=== PATIENT | male | born 1985 | race African-American/Black ===

== ENCOUNTER 2018-07-31 13:02 | Emergency (ER) | payer SELFPAY ==
[~2018-07-31] VITALS: Ht 182.9 cm; Wt 116.0 kg
[2018-07-31 18:48] LABS: BASOPHILS % 0.5 % (0.0-2.0); HEMATOCRIT. 46.2 % (42.0-52.0); HEMOGLOBIN. 15.4 g/dL (14.0-18.0); MEAN CORPUSCULAR HEMOGLOBIN 29.5 pg (28.0-32.0); MEAN CORPUSCULAR VOLUME 88.4 fL (80.0-94.0); MEAN PLATELET VOLUME 8.3 fl (7.4-10.4); NEUTROPHILS % 84.5 % (40.0-76.0); PLATELET 310 x1000/uL (130-400); RED BLOOD CELL COUNT 5.23 mill/uL (4.7-6.1); RED CELL DISTRIBUTION WIDTH 13.6 % (11.6-14.6)
[2018-07-31 18:49] LABS: *AMPHETAMINES SCREEN URINE NEGATIVE (NEGATIVE); *BARBITURATES SCREEN URINE NEGATIVE (NEGATIVE); *BENZODIAZEPINES SCREEN URINE NEGATIVE (NEGATIVE); *COCAINE SCREEN URINE NEGATIVE (NEGATIVE); METHADONE URINE SCREEN NEGATIVE (NEGATIVE); OPIATES URINE SCREEN NEGATIVE (NEGATIVE)
[2018-07-31 18:50] LABS: CANNABINOID URINE SCREEN PRESUMTIVE POSITIVE (NEGATIVE); PHENCYCLIDINE URINE SCREEN NEGATIVE (NEGATIVE)
[2018-07-31 18:51] LABS: CHLORIDE 105 mEq/L (98-107)
[2018-07-31 18:54] LABS: ETHANOL BLOOD < 10 mg/dL
[2018-07-31 20:42] VITALS: BP 125/78
== END 2018-07-31 20:43 | disposition home or self-care (01) ==
LOC: ER 13:19
DX: F12.188 Cannabis abuse with other cannabis-induced disorder (principal); R03.0 Elevated blood-pressure reading, without diagnosis of hypertension
CPT/HCPCS: 36415; 80048; 80305; 80307; 80320; 80329; 99284; G0480

== ENCOUNTER 2021-07-01 10:20 | Emergency (ER) | payer OTHER ==
[~2021-07-01] VITALS: Ht 193 cm; Wt 106.0 kg
[2021-07-01] MEDS ORDERED: KETOROLAC 30MG/ML VIAL IM ONE (11:30)
[2021-07-01] MEDS ORDERED: CYCLOBENZAPRINE 10MG TABLET PO ONE (11:30)
[2021-07-01] MEDS ORDERED: CYCLOBENZAPRINE 10MG TABLET PO NR (13:15)
[2021-07-01] MEDS ORDERED: KETOROLAC 30MG/ML VIAL IM NR (13:15)
[2021-07-01] MEDS ORDERED: HYDROCODONE/ACETAMINOPHEN 5/325MG TABLET PO ONE (14:00)
[2021-07-01 14:14] VITALS: BP 167/98
[2021-07-01] MEDS ORDERED: METH-653 MT (14:23)
[2021-07-01] MEDS ORDERED: P20 MT (14:23)
[2021-07-01] MEDS ORDERED: NAPR500T7 MT (14:23)
== END 2021-07-01 14:31 | disposition home or self-care (01) ==
LOC: ER 10:35
DX: M54.41 Lumbago with sciatica, right side (principal); F12.10 Cannabis abuse, uncomplicated
CPT/HCPCS: 96372; 99283; J1885